=== PATIENT | female | born 1995 | race Caucasian/White ===

== ENCOUNTER 2017-03-23 16:07 | Observation (INO) | payer BC, OTHER ==
[~2017-03-23] VITALS: Ht 170.2 cm; Wt 83.4 kg
[2017-03-23] MEDS ORDERED: NIKK1TAB PO (16:18)
[2017-03-23] MEDS ORDERED: NS 1,000 ML IV ONE (16:45)
[2017-03-23] MEDS ORDERED: ONDANSETRON 4MG/2ML VIAL (J2405) IV ONE (16:45)
[2017-03-23] MEDS ORDERED: KETOROLAC 30 MG/ML VIAL (J1885) IV ONE (16:45)
[2017-03-23 17:19] LABS: ADD MANUAL DIFFER YES; DIFF SLIDE NUMBER 131; MEAN CORPUSCULAR HEMOGLOBIN 30.1 pg (27.0-33.0); MEAN CORPUSCULAR HGB CONC 35.9 g/dl (32.0-36.5); MEAN CORPUSCULAR VOLUME 83.8 fl (80.0-96.0); PLATELET COUNT, AUTOMATED 180 k/mm3 (150-450); RED CELL DISTRIBUTION WIDTH 12.8 % (11.5-14.5); WHITE BLOOD COUNT 14.3 K/mm3 (4.0-10.0)
[2017-03-23 17:34] LABS: EOSINOPHILS 1 % (0-5)
[2017-03-23 17:45] LABS: CONTROL LINE HCG INT CTR LINE PRESENT; CONTROL LINE MONO INT CTR LINE PRESENT
[2017-03-23 17:48] LABS: ALBUMIN 3.6 GM/DL (3.2-5.2); ALBUMIN/GLOBULIN RATIO 1.09 (1.00-1.93); ALKALINE PHOSPHATASE 112 U/L (45-117); ALT/SGPT 38 U/L (12-78); ANION GAP 8 MEQ/L (8-16); AST/SGOT 21 U/L (15-37); BILIRUBIN,DIRECT 0.1 MG/DL (0.0-0.2); BILIRUBIN,TOTAL 0.4 MG/DL (0.2-1.0); BLOOD UREA NITROGEN 9 MG/DL (7-18); CALCIUM LEVEL 9.1 MG/DL (8.5-10.1); CARBON DIOXIDE LEVEL 25 MEQ/L (21-32); CHLORIDE LEVEL 104 MEQ/L (98-107); CREATININE FOR GFR 0.72 MG/DL (0.55-1.02); GLOMERULAR FILTRATION RATE > 60.0 (>60); GLUCOSE, FASTING 93 MG/DL (70-105); POTASSIUM SERUM 3.9 MEQ/L (3.5-5.1); SODIUM LEVEL 137 MEQ/L (136-145); T UPTAKE 25 % (30-39); THYROXINE (T4) 13.7 UG/DL (4.5-12.0); TOTAL PROTEIN 6.9 GM/DL (6.4-8.2)
[2017-03-23] MEDS ORDERED: EPIP0.3I2 INJ (18:22)
[2017-03-23] MEDS ORDERED: ALAV10TA10 PO (18:22)
[2017-03-23] MEDS ORDERED: PROAAER10 INH (18:22)
[2017-03-23 19:35] LABS: COMPLEMENT C3 132 MG/DL (90-180); COMPLEMENT C4 25.1 MG/DL (10-40)
[2017-03-23] MEDS ORDERED: ALBUTEROL SULFATE 2.5 MG/0.5 ML INH NEB SOLN NEB PRN (20:15)
[2017-03-23 20:30] VITALS: BP 118/57
[2017-03-23 20:48] LABS: REASON FOR REVIEW COMPREHENSIVE REVIEW
[2017-03-23] MEDS: ACETAMINOPHEN 500 MG TAB PO PRN (20:48)
[2017-03-23 20:57] LABS: IMMUNOGLOBULIN G 949 MG/DL (681-1648)
[2017-03-24] MEDS: ACETAMINOPHEN 500 MG TAB PO PRN ×3 (05:14→20:43)
[2017-03-24 06:00] VITALS: BP 110/51
[2017-03-24] MEDS: IBUPROFEN 400 MG TAB PO SCH ×3 (06:00→20:31)
--- NOTE | 2017-03-24 07:39 | REP ---
PA and lateral chest: There are no comparisons. The lung du are clear. The cardiac size is normal The erin, mediastinum, and bony thorax are unremarkable. Impression: Negative PA and lateral chest. Signed by Amor Almanzar MD 03/24/2017 07:31 A
--- NOTE | 2017-03-24 07:45 | REP ---
Lumbar spine five views: Vertebral body heights, interspacing alignment are normal. There is no spondylolysis or spondylolisthesis. The pedicles, facets and sacroiliac articulations are unremarkable. Mineralization is normal. Impression: Negative lumbar spine. Signed by Amor Almanzar MD 03/24/2017 07:37 A
--- NOTE | 2017-03-24 07:46 | REP ---
Cervical spine two views AP and lateral projections: Vertebral body heights, interspacing alignment are normal C1-C7. T1 is obscured by the shoulders. The facets are normally aligned. Prevertebral soft tissues are normal. Mineralization is normal. Impression: Negative two-view cervical spine. Kilos obscured by the shoulders. Signed by Amor Almanzar MD 03/24/2017 07:38 A
[2017-03-24 08:46] LABS: ALBUMIN 3.1 GM/DL (3.2-5.2); ALBUMIN/GLOBULIN RATIO 0.97 (1.00-1.93); ALKALINE PHOSPHATASE 94 U/L (45-117); ALT/SGPT 30 U/L (12-78); ANION GAP 8 MEQ/L (8-16); AST/SGOT 13 U/L (15-37); BILIRUBIN,TOTAL 0.5 MG/DL (0.2-1.0); BLOOD UREA NITROGEN 6 MG/DL (7-18); CALCIUM LEVEL 8.6 MG/DL (8.5-10.1); CARBON DIOXIDE LEVEL 25 MEQ/L (21-32); CHLORIDE LEVEL 108 MEQ/L (98-107); CREATININE FOR GFR 0.68 MG/DL (0.55-1.02); GLOMERULAR FILTRATION RATE > 60.0 (>60); GLUCOSE, FASTING 91 MG/DL (70-105); POTASSIUM SERUM 3.9 MEQ/L (3.5-5.1); SODIUM LEVEL 141 MEQ/L (136-145); TOTAL PROTEIN 6.3 GM/DL (6.4-8.2)
[2017-03-24 09:16] LABS: MEAN CORPUSCULAR HEMOGLOBIN 29.3 pg (27.0-33.0); MEAN CORPUSCULAR HGB CONC 34.6 g/dl (32.0-36.5); MEAN CORPUSCULAR VOLUME 84.7 fl (80.0-96.0)
--- NOTE | 2017-03-24 09:16 | HPE ---
DATE OF ADMISSION: 03/23/2017 PRIMARY CARE PROVIDER: [facility]. CHIEF COMPLAINT: Sore throat, neck pain, leg pain, hip and low back pain since last night along with low grade fever. PAST MEDICAL HISTORY: Asthma. HISTORY OF PRESENT ILLNESS: Patient has been off and on sick since July of 2016. Her symptoms consisted of neck pain, back pain, hip pain and pain in her thighs along with low grade fever and sore throat off and on. It would be severe for 2-3 days, then would improve and then again come back. It has been more frequent and more severe since January of this year. The patient had gone on a trip from school for two weeks to [place] in August. After she came back from her trip her primary care tested her for a different musculoskeletal of bone diseases. She was also tested for Lyme disease in January at [facility], which came back negative. Patient also complains of intermittent crampy abdominal pain and intermittent diarrhea, often 3-4 times per day. These abdominal symptoms have been going on longer than her joint and musculoskeletal symptoms. She denied any rash. Denied any involvement of knee joint or ankle joint, or any swelling of the joints. Mostly, her spinal skeleton, shoulders and hips are involved with pain, discomfort and stiffness. Denied any chest pain or difficulty in breathing. Denied any palpitations. Denies any lightheadedness or syncopal episodes. She has been tested for infectious mononucleosis by her primary care, which came back negative. The patient states that for the past one year she has been living in a very old house and the house had molds. They have recently moved to a much newer house, about two weeks ago. Patient also stated that other family members, especially the patient's mom, has also been having different symptoms and signs during this one year. In the emergency room, the patient had an elevated CRP, but her ESR was only mildly elevated to 25. The patient did have an elevated white blood cell count to 14.3 with 87% neutrophils. In the emergency room, the patient's Lyme screen has been ordered. Rheumatoid factor is negative. Complement C chain and complement 4 are normal. The patient's mono screen is negative and antistreptolysin titer is normal. The patient's TOPHER and double stranded DNA are pending. The patient's immunoglobulin levels have also been ordered as well as [id number]. At present, patient is being admitted to the hospitalist service for further workup for arthralgias and fever. PAST SURGICAL HISTORY: Cholecystectomy. Adenoidectomy. Tonsillectomy. Ovary and cyst removal. HOME MEDICATIONS: - ProAir two puffs inhalation four times a day as needed shortness of breath - EpiPen 0.3 mg injection as needed - loratadine 10 mg by mouth daily - María Elena 3/0.02 one tablet by mouth daily FAMILY HISTORY: Mother with multiple sclerosis. Maternal grandmother with a history of leukemia. Patient has ancestry on the fathers side from [facility] and on the mothers side from [place] and [facility]. SOCIAL HISTORY: Patient does not smoke, does not abuse alcohol or any recreational drugs. REVIEW OF SYSTEMS: All 10 point review of systems are negative except those mentioned in history of present illness. PHYSICAL EXAMINATION:: VITAL SIGNS: Temperature 100.9, pulse 117, respiratory rate 18, blood pressure 131/71, pulse oximetry 100% in room air. GENERAL: Patient awake, alert and oriented times three, lying down in bed in no acute distress. HEENT: Normocephalic, atraumatic. Moist mucous membranes. Anicteric eyes. CHEST: Clear to auscultation. CARDIOVASCULAR: S1 and S2 regular. No rub, murmur or gallop. ABDOMEN: Soft, nontender. Bowel sounds present. EXTREMITIES: No edema. LABORATORY DATA: WBC 14.3, hemoglobin 13.7, platelets 180, neutrophils 87%, lymphocyte 5%, ESR 25, CRP 5.55, sodium 137, potassium 3.9, chloride 104, bicarb 25, BUN 9, creatinine 0.7, glucose 93, lactate 1, calcium 9.1. Liver function tests are normal. TSH 0.789. Rheumatoid factor negative. C3 and C4 normal. Morgan screen negative. ASO titer normal. ASSESSMENT/PLAN: This is a 21-year-old female admitted for evaluation for recurrent episodes of arthralgias, myalgias, and low grade fever. PLAN: For arthralgias, myalgias and low grade fever, will evaluate the patient for collagen vascular disease. Will also workup for ankylosing spondylitis. The patient's Lyme titer has been ordered. In view of her mold exposure, will also send immunoglobulin G levels. The patient's mono screen is negative though she has recurrent episodes of sore throat. I will also get evaluation of peripheral smear to rule out for any hematological disorders. At present, will control fever with Tylenol and pain with Toradol. Will also get x-rays of the spine and sacroiliac joint to evaluate for sacroiliitis. Asthma. Will place the patient on albuterol as needed. Deep vein thrombosis (DVT) prophylaxis. Thromboembolic deterrent stockings (TEDS) and early ambulation. Leukocytosis. I have ordered blood cultures. Will also evaluate peripheral smear.
[2017-03-24] MEDS ORDERED: ONDANSETRON 4 MG TAB (S0181) PO PRN (11:30)
[2017-03-24 14:00] VITALS: BP 134/60
--- NOTE | 2017-03-24 16:47 | IPNPDOC ---
Text Note Date of Service The patient was seen on 03/24/17. NOTE Subjective: Patient seen and examined sitting up in chair. States that the end of January, she started having cold-like symptoms including sore throat, generalized body aches , runny nose. This occurred when she was at her parents home. After she had left her parents home, for about 3 weeks, she was symptom-free. Then she came back, she began to have recurrent symptoms of sore throat, neck pain, hip pain and thigh pain, shoulder pain. States that the most recent symptoms began around , and she had ignored them for a couple days until her joint pain had gotten worse. States that she felt more pain in her hips. Then she proceeded to coming to the emergency department around 4 PM yesterday for further evaluation. Apparently, patient was treated with outpatient antibiotics without relief as well. At this point in time, she denies fevers, chills, chest pain, shortness of breath, nausea, vomiting, diarrhea, constipation, abdominal pain. She admits to improved hip and shoulder pain from prior after being given pain medications. She had nausea yesterday, but no vomiting and no nausea today. She also states that she has headaches on and off but that she usually has headaches and does not really notice a difference with them. In addition, when asked travel history, she states that she went to [place] for 2 weeks in August, went to [place] on , went to [place] on Friday night, and was in [place] on Friday. She denies any significant sick contacts or eating anything out of the ordinary or any other recent new exposures. Her mother admits that she has very similar symptoms to her daughter and is also being evaluated as an outpatient. Nobody else in the home is sick. Patient also states that she did have a bumpy red petechial type rash in [place] that lasted for about 24-48 hours and then resolved. Mother at bedside also states that testing for mold in the home has been negative. Objective: Of note, patient's MAXIMUM TEMPERATURE was 100.9 on March 23. This morning, her temperature was 99.4 and previously 100, 100.1, 99.3. Her maximum pulse was 117. This morning, her pulse was 98 and previously 100, 108, 117. Patient is satting in the 90s on room air. Her respiratory rate and blood pressure are stable. Please see vital signs and physical examination below. Laboratory data: Labs were significant for white blood cell count of 14.3, neutrophil count of 87 , lymphocyte count of 5, ESR of 25, CRP 5.55, lactic acid of 1, T4 of 13.7, TSH of 0.79, T3 uptake of 25, IgG of 949, IgA 163, IgE 188, rheumatoid factor less than 10, C3 complement 132, C4 complement of 25.1, mono screen negative, antistreptolysin O antibody of 26.3, lipase of 116, and BMP was within normal limits. A peripheral smear is pending. Other autoimmune and serological markers have been ordered and are pending at this point in time. Urinalysis: pending. Microbiology: Group A Strep screen: (-) for strep pyogenes. Blood cultures 2 are pending. Respiratory panel was negative. Urine cx pending. ENT cx pending. Imaging: C-Spine X-Ray: Vertebral body heights, interspacing alignment are normal C1-C7. T1 is obscured by the shoulders. The facets are normally aligned. Prevertebral soft tissues are normal. Mineralization is normal. Negative two-view cervical spine. Lumbar spine five views: Vertebral body heights, interspacing alignment are normal. There is no spondylolysis or spondylolisthesis. The pedicles, facets and sacroiliac articulations are unremarkable. Mineralization is normal. Impression: Negative lumbar spine. PA and lateral chest: There are no comparisons. The lung du are clear. The cardiac size is normal The erin, mediastinum, and bony thorax are unremarkable. Impression: Negative PA and lateral chest. Assessment: 21-year-old previously healthy female who presented for an acute onset of recurrent fever, myalgias, arthralgias of unknown origin. Differential diagnosis includes infectious versus inflammatory versus autoimmune versus rheumatologic versus hematologic process. Plan: Fever of unknown origin with myalgias and arthralgias: Rule out infectious vs. inflammatory vs. rheumatologic vs. autoimmune etiologies. Continue tylenol. Labs so far have been unremarkable and unrevealing. Rheumatoid factor has been negative. IgE was high, however, at 188. IgA was negative. ESR has gone up from 25 to 37. CRP went up from 5.55 to 9.58. WBC has gone down from 14.3 to 12. An HIV test was performed which was negative. Lyme disease titers were negative. Monoscreen screen was negative. Anti-streptolysin O Ab was negative. Dr. Loera has ordered workup for collagen vascular disease, ankylosing spondylitis, and Lyme disease. X-rays of C-spine, lumbar spine, and CXR were all negative. HLA- b27 pending. Dr. Pollard of Infectious Disease has been consulted. Will follow up labs when available. Leukocytosis: WBC has come down from 14.3 to 12. May be viral. Blood cx pending to rule out bacterial etiology. Peripheral smear pending to rule out possible hematological disorder or malignancy. --Patient's mom states mold was tested for in home and was (-). In addition, immunoglobulin IgG levels were negative. L Posterior Lymph Node: consider causes of lymphadenopathy such as viral vs. unlikely but malignancy or hematological disorder. Will plan to look for other areas of lymph nodes such as under axilla and groin areas tomorrow. Peripheral smear pending. Sore Throat: Monoscreen and streptolysin O ab were negative. No hepatosplenomegaly palpated. Will treat symptomatically. Possibly viral. Subclinical Hyperthyroidism: Elevated thyroxine (T4) of 13.7, Free T4: 3.4, TSH of 0.79, T3 uptake of 25. Asthma: albuterol PRN. DVT ppx: TEDs and will encourage OOB with ambulation on a daily basis. FULL CODE STATUS Immunizations as per protocol My preceptor for this patient encounter was Dr. Madyson Minaya, and was physically present in the building during the encounter and was fully available. As needed, all aspects of the patient interview, examination, medical decision making process, and medical care plan development were reviewed and approved by the preceptor. Preceptor is aware and concurs with the plan as stated in the body of this note and will attest to such by his/her cosignature. VS,Fishbone, I+O VS, Fishbone, I+O Laboratory Tests 03/23/17 16:56 Red Blood Count 4.56, Mean Corpuscular Volume 83.8, Mean Corpuscular Hemoglobin 30.1, Mean Corpuscular Hemoglobin Concent 35.9, Red Cell Distribution Width 12.8 03/24/17 06:20 Red Blood Count 4.52, Mean Corpuscular Volume 84.7, Mean Corpuscular Hemoglobin 29.3, Mean Corpuscular Hemoglobin Concent 34.6, Red Cell Distribution Width 13.0 , Calcium Level 8.6, Aspartate Amino Transf (AST/SGOT) 13 L, Alanine Aminotransferase (ALT/SGPT) 30, Alkaline Phosphatase 94, Total Bilirubin 0.5, Total Protein 6.3 L, Albumin 3.1 L Vital Signs Date Time Temp Pulse Resp B/P (MAP) Pulse Ox O2 Delivery O2 Flow Rate FiO2 03/24/17 14:00 98.2 86 17 134/60 (84) 98 Room Air I&O- Last 24 Hours up to 6 AM 03/24/17 06:00 Intake Total 1080 ml Output Total 1400 ml Balance -320 ml Physical Examination Physical Examination Vital Signs/I&O Vital Signs Date Time Temp Pulse Resp B/P (MAP) Pulse Ox O2 Delivery O2 Flow Rate FiO2 03/24/17 14:00 98.2 86 17 134/60 (84) 98 Room Air I&O- Last 24 Hours up to 6 AM 03/24/17 06:00 Intake Total 1080 ml Output Total 1400 ml Balance -320 ml Recent Travel/Sick Contacts: Reports: Recent travel (Early this year in August : [place], [place] on , [place] on Friday night, and [place] on Friday ) General Exam: Positive: alert, attentive, talkative, cooperative, no acute distress, oriented times three ENT EXAM: Positive: normocephalic, atraumatic Neck Exam: Positive: Supple, Normal inspection, Lymphadenopathy (Posterior cervical lymph node palpable in L posterior Neck), Negative: Thyromegaly Chest Exam: Positive: Clear to auscultation, Negative: Wheezing, Rales, Rhonchi Heart Exam: Positive: Regular rate and rhythm, Normal S1, S2, Negative: Murmurs Abdominal Exam: Positive: Normal bowel sounds, Soft, Negative: Nondistended, Nontender, Hepatospenomegaly Extremity Exam: Negative: Clubbing, Cyanosis, Edema Skin Exam: Negative: Rashes Neuro Exam: Positive: Normal Speech Psych Exam: Positive: Mental status NL, Mood NL, Memory Intact, Alert and oriented x 3 Laboratory Data Labs 24H Laboratory Tests 2 03/24/17 06:20: Erythrocyte Sedimentation Rate 37H, Anion Gap 8, Glomerular Filtration Rate > 60.0, Blood Urea Nitrogen 6L, Creatinine 0.68, Sodium Level 141, Potassium Level 3.9, Chloride Level 108H, Carbon Dioxide Level 25, Calcium Level 8.6, Aspartate Amino Transf (AST/SGOT) 13L, Alanine Aminotransferase (ALT/SGPT) 30, Alkaline Phosphatase 94, Total Bilirubin 0.5, Total Protein 6.3L, Albumin 3.1L, C-Reactive Protein, Quantitative 9.58H, Albumin/Globulin Ratio 0.97L, Rheumatoid Factor < 10.0, HIV Antigen/Antibody Combo Qual NEGATIVE 03/24/17 06:25: 03/24/17 11:30: Urine Appearance CLEAR, Urine Color STRAW, Urine pH 6.0, Urine Specific [place] 1.001L, Urine Protein NEGATIVE, Urine Glucose (UA) NEGATIVE, Urine Ketones NEGATIVE, Urine Urobilinogen 0.2, Urine Bilirubin NEGATIVE, Urine Leukocyte Esterase NEGATIVE, Urine Blood 1+H, Urine Nitrite NEGATIVE, Urine WBC (Auto) 0, Urine RBC (Auto) 0, Urine Hyaline Casts (Auto) 0, Urine Bacteria (Auto) 1+H, Urine Squamous Epithelial Cells 0, Urine Sperm (Auto) CBC/BMP Laboratory Tests 03/24/17 06:20 Red Blood Count 4.52, Mean Corpuscular Volume 84.7, Mean Corpuscular Hemoglobin 29.3, Mean Corpuscular Hemoglobin Concent 34.6, Red Cell Distribution Width 13.0 , Calcium Level 8.6, Aspartate Amino Transf (AST/SGOT) 13 L, Alanine Aminotransferase (ALT/SGPT) 30, Alkaline Phosphatase 94, Total Bilirubin 0.5, Total Protein 6.3 L, Albumin 3.1 L Microbiology Microbiology 03/23/17 Blood Culture, Received Pending 03/23/17 Blood Culture, Received Pending 03/24/17 Respiratory Virus Panel (PCR) ([facility]) - Final, Complete 03/23/17 Group A Streptococcus Screen ([facility]) - Final, Complete 03/24/17 Urine Culture, Received Pending FARIDEH PINEDO-1 Mar 24, 2017 16:47
[2017-03-24] MEDS ORDERED: ISOVUE-370 76% 100ML VIAL (Q9967) As Ordered ONE (17:58)
--- NOTE | 2017-03-24 19:08 | REP ---
CT CHEST WITH IV CONTRAST: TECHNIQUE: Axial contrast enhanced images from the thoracic inlet to the upper abdomen using 100 mL Isovue 370 intravenous contrast material with multiplanar reformations. The lungs are free of infiltrate or other suspicious opacities. Heart is normal in size. There is no pleural or pericardial effusion. There is no evidence of thoracic aortic aneurysm or dissection. Residual thymic tissue is seen in the anterior mediastinum. There is no evidence of mediastinale, hilar or chest wall lymphadenopathy. In the visualized portions of the upper abdomen there is evidence of a prior cholecystectomy. There appears to be mild splenomegaly. IMPRESSION: No adenopathy in the chest. Mild splenomegaly. Signed by Amor Lara MD 03/25/2017 12:34 P
--- NOTE | 2017-03-24 19:08 | REP ---
CT SOFT TISSUES NECK: CT soft tissues neck performed in the axial plane following the intravenous administration of 100 mL of Isovue-370. Sagittal and coronal reconstruction images are performed. There is mild lymphadenopathy on both sides of the neck. On the left, the posterior triangle lymph node measures 1.7 x 1.2 cm. A carotid chain lymph node measures 1.7 x 1.3 cm. Several other smaller lymph nodes are seen in these regions. On the right, the largest posterior triangle lymph node only measures 9 mm in short axis. The largest lymph node along the carotid chain measures 1.6 x 1.1 cm. Multiple smaller lymph nodes are seen along the carotid chain. The submandibular and parotid glands demonstrate no suspicious nodules. The thyroid gland is unremarkable. The adenoids are mildly enlarged as are the palatine tonsils. No abscess is seen. The visualized osseous structures appear unremarkable. IMPRESSION: Mild lymphadenopathy, more so in the left neck soft tissues as discussed in detail above. Mild enlargement of the adenoids and palatine tonsils. Signed by Amor Lara MD 03/25/2017 12:34 P
[2017-03-24 22:00] VITALS: BP 131/63
[2017-03-25 06:00] VITALS: BP 122/61
[2017-03-25] MEDS: IBUPROFEN 400 MG TAB PO SCH ×2 (06:15→14:00)
[2017-03-25] MEDS: ACETAMINOPHEN 500 MG TAB PO PRN (06:50)
[2017-03-25 06:57] LABS: MEAN CORPUSCULAR HEMOGLOBIN 29.8 pg (27.0-33.0); MEAN CORPUSCULAR HGB CONC 34.4 g/dl (32.0-36.5); MEAN CORPUSCULAR VOLUME 86.6 fl (80.0-96.0); RED CELL DISTRIBUTION WIDTH 13.3 % (11.5-14.5); WHITE BLOOD COUNT 11.6 K/mm3 (4.0-10.0)
[2017-03-25 07:08] LABS: ANION GAP 10 MEQ/L (8-16); BLOOD UREA NITROGEN 5 MG/DL (7-18); CALCIUM LEVEL 8.4 MG/DL (8.5-10.1); CARBON DIOXIDE LEVEL 24 MEQ/L (21-32); CHLORIDE LEVEL 107 MEQ/L (98-107); GLOMERULAR FILTRATION RATE > 60.0 (>60); GLUCOSE, FASTING 84 MG/DL (70-105); POTASSIUM SERUM 3.8 MEQ/L (3.5-5.1); SODIUM LEVEL 141 MEQ/L (136-145)
[2017-03-25 07:54] LABS: CONTROL LINE MONO RF C INT CTR LINE PRESENT
[2017-03-25] MEDS ORDERED: IBUP-1114 PO (11:08)
[2017-03-25] MEDS ORDERED: TYLE325T5 PO (11:08)
[2017-03-25] MEDS ORDERED: ONDA4TAB5 PO (11:08)
[2017-03-26 00:07] LABS: Lyme Disease IgG/IgM Antibodie <0.91 ISR (0.00-0.90); Lyme Disease IgM Ab Quantitati <0.80 index (0.00-0.79)
--- NOTE | 2017-03-26 06:02 | CR ---
DATE OF CONSULTATION: 03/24/2017 INFECTIOUS DISEASE CONSULTATION: Asked to consult by hospitalist for evaluation of fever with lymphadenitis. HISTORY OF PRESENT ILLNESS: Herlinda is a pleasant 21-year-old female who was admitted to [facility] yesterday with complaint of sore throat, neck pain, and bilateral hip pain of 4 days' duration. The patient states that this current episode started about 4 days ago, when she developed fevers with severe sore throat, neck stiffness, and bilateral hip pain. The patient was seen in our emergency room and, due to the fact that she has had multiple recurrent similar Illnesses, was admitted to our hospital. She has not been started on antibiotics and has had low-grade fevers. The patient reports several symptoms for the past 9 months. She had been in [place] in August for 2 weeks studying. When she came back from her trip, she was having severe fatigue and sore throat. She was diagnosed with infectious mononucleosis by her primary care provider around November of 2016. She was seen again in January of 2017 for an emergency room (ER) visit at [facility], where a monospot was done, a group A streptococcus screen was done, Lyme disease was negative, and she was given some antibiotics. She followed up for primary care provider, Dr. Eagle Roa, who told her that this was viral and that she needed to stop her antibiotics. She denies having any cough or shortness of breath. She does have sinus infections usually recurrent, 3-4 a year, and recently has been referred to Dr. Wallace, who is an supervisor display fabrication, and is being worked up for seasonal allergies. She has mouth breathing and conjunctivitis with allergic rhinitis. Patient denies any night sweats. She denies any weight loss. She has weight gain. She had a short episode of nausea but no vomiting. She has intermittent abdominal pain with intermittent diarrhea about 3-4 times a day, which is normal for her. She has mild irritable bowel syndrome. She is not concerned about that; that has always been the case. They had lived in a house that was from the late 1800s that had been found to have mold in the basement, and they just left the house. Her mother has had also recurrent symptoms of sinopulmonary infections and has concern about the mold causing this current illness. Her white count on admission was 14,000. Lyme screen was pending. Patient is not on antibiotic. Her hip pains have improved. Her fever has decreased. 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 Came back from the camp and went back to the house to clear out the house and move into a new rental. PAST SURGICAL HISTORY: Cholecystectomy. Adenoidectomy. Tonsillectomy. Ovarian dermoid cyst removal. MEDICATION: - ProAir two puffs every 4 hours as needed but has not used it in a long time - EpiPen as needed - loratadine 10 mg - María Elena one tablet by mouth daily control (She has not been sexually active recently but agreed on HIV testing.) FAMILY HISTORY: Mother with multiple sclerosis. Maternal grandmother leukemia. SOCIAL HISTORY: She does not smoke. Does not drink or use elicit drugs. She goes to [facility] for nutrition. REVIEW OF SYSTEMS: She has no nausea, vomiting. She has intermittent diarrhea. No headache but does complain of neck stiffness, adenopathy, sore throat, postnasal drip. She had no upper or lower extremity weakness. She has chronic hip pain, left more than right, but more so recently with this illness. No rashes. She has had some mosquito bites. ON PHYSICAL EXAM: Healthy looking female in no acute distress. Vital Signs: Temperature is 98.2, pulse 86, respiration 17, blood pressure 134/70, oxygen saturation 98% on room air. Maximum temperature (Tmax) 100.9 in the past 24 hours. Heart: Normal S1, S2. No murmurs, rubs, or gallops appreciated. Lungs: Are clear. No wheezes, rales, or rhonchi. Abdomen: Soft, nontender. No hepatosplenomegaly. Back: No costovertebral angle (CVA) or lumbosacral tenderness. Extremities: No clubbing, cyanosis, or edema. No calf tenderness. She has at least 3-4 mosquito bites on both lower extremities healing. Neck: Is supple with no stiffness. No jugular venous distention (JVD). No bruits, but she has tender adenopathy both sides, measuring about 1.5 cm on each side, including the posterior auricular chain. Tonsils are enlarged with yellow pustules, right worse than left. No thrush. Pupils equal and reactive, anicteric. No petechiae. Neurologic: Exam intact. LABS: White count is 12, hemoglobin 13.3, hematocrit 38.3, platelets 202, sedimentation rate is 37. Sodium 141, potassium 3.9, chloride 108, bicarbonate 25, BUN 6, creatinine 0.68, glucose 91, calcium 8.6, bilirubin 0.5, CRP 9.58, AST 13, ALT 30, albumin 3.1, free T4 of 3.4, TSH 0.789, hCG negative, immunoglobulin level 949. IgA 163, IgE 188, rheumatoid factor less than 10, complement levels normal. Blood cultures, two sets, no growth after 24 hours. Group A streptococcus negative. Respiratory panel negative. Urine culture pending. IMPRESSION: This is a 21-year-old female who presents with an illness that has initially started with what sounded like infectious mononucleosis in November of 2016 with fatigue and sore throat, followed by an emergency room visit in January of 2017 with recurrent fevers, sore throat, and neck stiffness, and now an admission for recurrent fevers and these have been separate episodes but seem to be related. The patient has definitely evidence of pustular tonsillitis with cervical adenitis and causing this neck stiffness with fevers. She has a cat and may be at risk of also toxoplasmosis. Other illnesses other than mononucleosis that could cause similar symptoms would be cytomegalovirus. She has been HIV tested, and this has been negative. Denies any recent sexual exposure. Doubt this is bacterial in origin; this is most likely viral. There is no mold that could cause these symptoms. She does not have allergic symptoms of asthma to suggest the mold being the problem. I suspect maybe she relapsed with infectious mononucleosis as she went to a camp and has been moving her mother out of this house as they were concerned about this mold exposure. PLAN: Will obtain a stool culture to rule out other possible bacterial etiology other than group A streptococcus, such as group C. Will obtain a CT neck and chest to rule out occult malignancy, lymphoma. We will keep her off antibiotics at this point. This does not seem immunologic in origin. An immunologic workup has been done. Mononucleosis screen is negative, but Kevin-Chaparro virus (EBV) comprehensive profile was ordered, cytomegalovirus (CMV) urine antigen was ordered, and toxoplasma serology as well. The patient could probably be discharged home in the next 24-48 hours. [facility]
[2017-03-26 08:06] LABS: TOXOPLASMA IgG ABY <3.0 IU/mL (0.0-7.1)
--- NOTE | 2017-03-26 18:00 | DS.PDOC ---
Discharge Summary General Date of Admission Mar 23, 2017 at 18:33 Date of Discharge 03/25/17 Attending Physician: DAVID NICOLAS DO Specialist/Consultants Involve: [place]ie Pollard MD Discharge Summary PCP: Dr. Eagle Roa in [place], [place] Consults: Infectious Disease: Dr. [place]ie Pollard Discharge diagnosis: Fever of Unknown Origin with Myalgias and Arthralgias Leukocytosis: Improved L Posterior Lymph Node IBD Test was possibly suggestive of Crohn's disease with a positive Saccharomyces cerevisiae IgG Ab of 68, but the pattern was not conclusive. EBV capsid Ag IgG Ab was 480, EBV capsid Ag IgM Ab was <36 and was negative, EBV early antigen IgG was 11.8, and EBV nuclear antigen Ab was >600 indicative of past infection or recurrent infection: Mononucleosis Pustular tonsillitis with cervical adenitis causing neck stiffness with fevers ( Dr. Pollard) Subclinical Hyperthyroidism Secondary diagnosis: Asthma Hospital course: 21 yo F with a PMH only of asthma presented to [facility] ED on 03/23/17 with cc of sore throat, neck pain, leg pain, hip and low back pain since the night before presentation with low grade fever. Maximum temperature was 100.9 on March 23. She had apparently complained of similar symptoms on and off since July 2016: neck pain, back pain, hip pain, pain in the thighs along with low grade fever and sore throat. This would occur intermittently, last for 2-3 days, improve, and recur again. Symptoms had become more frequent since the end of January this year. Patient also admitted that she has headaches on and off but that she usually has headaches and does not really notice a difference with them. In addition, when asked travel history, she states that she went to [place] for 2 weeks in August, went to [employer] on , went to [employer] on Friday night, and was in [place] on Friday. She denies any significant sick contacts or eating anything out of the ordinary or any other recent new exposures. Her mother admits that she has very similar symptoms to her daughter and is also being evaluated as an outpatient. Nobody else in the home is sick. Patient also states that she did have a bumpy red petechial type rash in [place] that lasted for about 24-48 hours and then resolved. Mother at bedside also states that testing for mold in the home has been negative. After coming back from her trip from [place], her PCP had done testing of different MSK bone diseases , lyme disease in January at [facility], which was negative. In addition, patient had also complained of abdominal pain and intermittent diarrhea which has been occurring even longer than patient's joint and MSK symptoms. Denied rash or involvement of knees, ankles, or swelling of the joints. The main areas of complaint were her spinal skeleton, shoulders, and hips. She was tested for infectious mononucleosis by PCP which was negative. Patient admitted to living in a very old home for the past year, which she suspected had mold. Patient's mother also reported similar symptoms as daughter. However, they have just moved to a much newer house ~2 weeks prior to presentation. In addition, patient stated that she had left her parents old home earlier this year for about 3 weeks and she was symptom free at that time. However, she then came back and to began to have recurrent symptoms of sore throat, neck pain, hip pain , thigh pain, and shoulder pain. However, mother stated that they had testing for mold in the home which was negative. In the ER, patient's CRP was elevated at 5.55 with only a mildly elevated ESR at 25. Patient also had leukocytosis of WBC 14.3 with 87% neutrophils. During admission, lyme screen was ordered, rheumatoid factor was negative, complement C chain and complement 4 were normal , mono screen was negative, and antistreptolysin titer was normal. TOPHER and double stranded DNA, immunoglobulin levels, and HLAB27 were also ordered. Blood cx and peripheral smear were also ordered for evaluation of the leukocytosis. Patient was evaluated for collagen vascular disease and ankylosing spondylitis as well as for fungal source of infection as well as for lyme disease as well as hematological disorders versus viral infections. Patient's fever was controlled with tylenol and pain was controlled with toradol. X-rays were obtained of the spine and SI joint to evaluate for sacroilliitis. DVT ppx was provided with TEDS and encouragement of early ambulation. The day after admission, patient admitted to improvement in her hip and shoulder pain from prior after being given pain medications: toradol 30 mg IV once, tylenol 1000 mg, and ibuprofen 400 mg. . She had nausea on admission but not the next day. She had no vomiting. Of note, patient stated she was treated with outpatient antibiotics without relief of her symptoms as well. Dr. [place]ie Pollard of infectious disease was consulted who wrote in her note that the patient presented with symptoms possibly suggestive of infectious mononucleosis initially in November 2016 with fatigue and sore throat. She then had an ER visit in January 2017 for recurrent fevers, sore throat, neck stiffness, and was presenting again this time for recurrent fevers. Dr. Pollard stated that patient definitely had evidence of pustular tonsillitis with cervical adenitis causing neck stiffness with fevers. She suspected that patient's illness was likely viral in origin and possibly a relapse of infectious mononucleosis due to the patient going to a camp. Patient also had a cat and patient was also tested for toxoplasmosis. Dr. Pollard also ordered CMV urine antigen, a CT scan of the neck and chest to rule out malignancy and lymphoma. A stool cx was also ordered but seems never performed prior to discharge. Labs were significant for white blood cell count most recently of 11.6, neutrophil count of 87, lymphocyte count of 5, ESR of 25 which went up to 37 yesterday, CRP 5.55 which went up to 9.58 yesterday, lactic acid of 1, T4 of 13.7, TSH of 0.79, T3 uptake of 25, IgG of 949, IgA 163, IgE 188, rheumatoid factor less than 10, C3 complement 132, C4 complement of 25.1, mono screen negative, antistreptolysin O antibody of 26.3, lipase of 116, and BMP was within normal limits. A peripheral smear had shown a normocytic smear, mild leukocytosis which was likely reactive in nature, and no abnormal immature leukocytes were identified. Anticyclic citrullinated peptide was 8, TOPHER screen was negative, atypical ANCA was negative, c-ANCA antibody was negative, atypical p-ANCA was negative, Anti-ds DNA IgG ab was 2 and negative, ALCA IgG Ab was 15 and negative, AMCA IgG Ab was 38 and negative, ACCA IgA Ab was 37 and negative, Total Complement CH50 was positive at 62. HLA-B27 was negative. Lyme disease testing was negative, HIV test was negative, Toxoplasma antibodies were negative. EBV capsid Ag IgG Ab was 480, EBV capsid Ag IgM Ab was <36 and was negative, EBV early antigen IgG was 11.8, and EBV nuclear antigen Ab was >600 indicative of past infection or recurrent infection. Double stranded DNA Ab was not performed. IBD Test was possibly suggestive of Crohn's disease with a positive Saccharomyces cerevisiae IgG Ab of 68, but the pattern was not conclusive. Urinalysis: was unremarkable for UTI. Microbiology: Group A Strep screen: (-) for strep pyogenes. Blood cultures 2: NGTD x 5 days. Respiratory panel: (-) Urine cx: no growth ENT cx: normal lidia present Imaging: C-Spine X-Ray: Vertebral body heights, interspacing alignment are normal C1-C7. T1 is obscured by the shoulders. The facets are normally aligned. Prevertebral soft tissues are normal. Mineralization is normal. Negative two-view cervical spine. Lumbar spine five views: Vertebral body heights, interspacing alignment are normal. There is no spondylolysis or spondylolisthesis. The pedicles, facets and sacroiliac articulations are unremarkable. Mineralization is normal. Impression: Negative lumbar spine. PA and lateral chest: There are no comparisons. The lung du are clear. The cardiac size is normal The erin, mediastinum, and bony thorax are unremarkable. Impression: Negative PA and lateral chest. Chest CT: No adenopathy in the chest. Mild splenomegaly. Neck CT with Contrast: Mild lymphadenopathy on both sides of the neck, more so in the left neck soft tissues. Mild enlargement of the adenoids and palatine tonsils. Otherwise, unremarkable. Progress note on date of discharge: 03/25/17 Subjective: Patient seen and examined sitting up in chair. States that she is feeling better today. Denies fevers, chills, chest pain, shortness of breath, headache, nausea, vomiting, abdominal pain, diarrhea, constipation. She also denies neck stiffness and blurred vision. Reports improvement in her hip pain and shoulder pain. Objective: Vitals: Please see below Physical Examination: General Exam: Positive: alert, no acute distress, oriented times three ENT EXAM: Positive: normocephalic, atraumatic Neck Exam: Positive: Supple, +Lymphadenopathy (Posterior cervical lymph node palpable in L posterior Neck), Chest Exam: Positive: Clear to auscultation bilaterally Heart Exam: Positive: Regular rate and rhythm, Normal S1, S2 Abdominal Exam: Positive: Normal bowel sounds, Soft, Nondistended, Nontender, No Hepatospenomegaly palpable Extremity Exam: Negative: Clubbing, Cyanosis, Edema Skin Exam: Negative: Rashes Neuro Exam: No focal neurologic deficits appreciated bilaterally Psych Exam: Positive: Mental status NL, Mood NL, Memory Intact, Alert and oriented x 3 Labs: Please see below Assessment: 21-year-old previously healthy female who presented for an acute onset of recurrent fever, myalgias, arthralgias of unknown origin. Differential diagnosis includes infectious versus inflammatory versus autoimmune versus rheumatologic versus hematologic process. According to Dr. Pollard's ID consult note, patient definitely had evidence of pustular tonsillitis with cervical adenitis causing neck stiffness with fevers. She suspected that patient's illness was likely viral in origin and possibly a relapse of infectious mononucleosis due to the patient going to a camp. Patient also had a cat and patient was also tested for toxoplasmosis, which was negative.. Dr. Pollard also ordered CMV urine antigen, a CT scan of the neck and chest to rule out malignancy and lymphoma. Stool cx were also ordered but were never performed prior to discharge it seems. Dr. Pollard also ordered a CT scan of the chest and neck to rule out malignancy and lymphoma, which seemed to be unremarkable. IBD Test was possibly suggestive of Crohn's disease with a positive Saccharomyces cerevisiae IgG Ab of 68, but the pattern was not conclusive. EBV capsid Ag IgG Ab was 480, EBV capsid Ag IgM Ab was <36 and was negative, EBV early antigen IgG was 11.8, and EBV nuclear antigen Ab was >600 indicative of past infection or recurrent infection of mononucleosis. Disposition: Medically and Hemodynamically Stable. Follow-up: With PCP Dr. Eagle Roa in [place], [place] in 3-5 days With [employer] Dr. Morena Wallace in [place], [place] within 1-2 weeks Please establish with [facility] if symptoms worsen or do not improve Activity: As tolerated Diet: Regular Medications on discharge: Tylenol and Ibuprofen PRN pain Zofran PRN nausea Please see below for full medication list Cc: Dr. Eagle Roa PCP Time spent on discharge: 35 minutes Vital Signs/I&Os Vital Signs Date Time Temp Pulse Resp B/P (MAP) Pulse Ox O2 Delivery O2 Flow Rate FiO2 03/25/17 06:00 98.8 88 17 122/61 (81) 98 Room Air I&O- Last 24 Hours up to 6 AM 03/26/17 05:59 Intake Total 2240 ml Output Total 2830 ml Balance -590 ml Microbiology Microbiology 03/23/17 Blood Culture - Preliminary, Resulted No Growth after 72 hours. All specime... 03/23/17 Blood Culture - Preliminary, Resulted No Growth after 72 hours. All specime... 03/24/17 Eye/Ear/Nose/Throat Culture - Final, Complete 03/24/17 Respiratory Virus Panel (PCR) (SUDHA) - Final, Complete 03/23/17 Group A Streptococcus Screen (SUDHA) - Final, Complete 03/24/17 Urine Culture - Final, Complete Discharge Medications Scheduled (María Elena 3-0.02 mg) 1 Tab Tab, 1 TAB PO DAILY, (Reported) Loratadine (Alavert) 10 Mg Tab, 10 MG PO DAILY, (Reported) Scheduled PRN (Epipen 2-Josué) 0.3 Mg/0.3 Ml Inj, 0.3 MG INJ for ALLERGIC REACTION, (Reported) Acetaminophen (Tylenol) 325 Mg Tab, 325 MG PO Q4HP PRN for PAIN / FEVER Use only for pain/fever if needed. Albuterol Sulfate (Proair Hfa) 108 Mcg/Act Aer, 2 PUFF INH QID PRN for SHORTNESS OF BREATH, (Reported) Ibuprofen (Ibuprofen) 400 Mg Tab, 400 MG PO Q8HP PRN for PAIN / FEVER Use only for pain/fever if needed in addition to tylenol.Take at least 2-3 hours after using tylenol. Ondansetron HCl (Ondansetron HCl) 4 Mg Tab, 4 MG PO Q6HP PRN for NAUSEA OR VOMITING Use only as needed for nausea/vomiting. Allergies Coded Allergies: Cefdinir (Unverified Allergy, Unknown, HIVES, THROAT SWELLING, 03/23/17) Penicillins (Unverified Allergy, Unknown, HIVES, THROAT SWELLING, 03/23/17) Sulfamethoxazole w/Trimethoprim (Unverified Allergy, Unknown, HIVES, THROAT SWELLING, 03/23/17) GME ATTESTATION GME ATTESTATION My preceptor for this patient encounter was Dr. David Nicolas, and was physically present in the building during the encounter and was fully available. As needed, all aspects of the patient interview, examination, medical decision making process, and medical care plan development were reviewed and approved by the preceptor. Preceptor is aware and concurs with the plan as stated in the body of this note and will attest to such by his/her cosignature. FARIDEH PINEDO OGME-1 Mar 26, 2017 18:00
[2017-03-28 14:17] LABS: Chitobioside Carbohydrat (ACCA 37 units (0-90); Laminaribioside Carbohyd (ALCA 15 units (0-60); Mannobioside Carbohydrat (AMCA 38 units (0-100); Saccharomyces cerevisiae IgG A 68 units (0-50)
== END 2017-03-25 14:30 | disposition home or self-care (01) ==
LOC: M ED 16:07 → M ED INP 18:33 → M MSPAV 20:32
PROVIDERS: ADMIT Internal Medicine Nephrology; ATTEND Internal Medicine
DX: D72.829 Elevated white blood cell count, unspecified (principal); R50.9 Fever, unspecified; M54.2 Cervicalgia; M54.5 Low back pain; J45.909 Unspecified asthma, uncomplicated; Z79.51 Long term (current) use of inhaled steroids
CPT/HCPCS: 36415; 70491; 71020; 71260; 72040; 72110; 80048; 80053; 80076; 81001; 81374; 82550; 82784; 82785; 83516; 83605; 83690; 84436; 84443; 84479; 84703; 85025; 85027; 85652; 86038; 86063; 86140; 86160; 86162; 86200; 86225; 86256; 86308; 86431; 86617; 86663; 86664; 86665; 86777; 86778; 87040; 87070; 87086; 87389; 87486; 87581; 87633; 87798; 87880; 96374; 96375; 99284; J1885; J2405; Q9967

== ENCOUNTER → 2018-08-09 | Outpatient (REF) | payer OTHER ==
[~2018-08-09] MED LIST: ALAV10TA10 PO; EPIP0.3I2 INJ; IBUP-1114 PO; NIKK1TAB PO; ONDA4TAB5 PO; PROAAER10 INH; TYLE325T5 PO
== END ==
LOC: M SFHCLERA 17:01
PROVIDERS: ATTEND Physician Assistant
DX: J02.9 Acute pharyngitis, unspecified (principal)